=== PATIENT | female | born 1945 | race Caucasian/White ===

== ENCOUNTER 2018-06-23 13:35 | Emergency (ER) | payer BC ==
[~2018-06-23] VITALS: Ht 162.6 cm; Wt 75.7 kg
[~2018-06-23 13:35] MED LIST: LIPITOR10 MG PO
[2018-06-23 13:39] VITALS: BP 124/72; Ht 162.6 cm; Wt 75.7 kg
== END 2018-06-23 14:54 | disposition home or self-care (01) ==
LOC: ED 13:35
DX: M25.511 Pain in right shoulder (principal); E78.00 Pure hypercholesterolemia, unspecified; K21.9 Gastro-esophageal reflux disease without esophagitis; F41.9 Anxiety disorder, unspecified
CPT/HCPCS: J1885

== ENCOUNTER 2018-07-04 13:27 | Emergency (ER) | payer BC ==
[~2018-07-04] VITALS: Ht 162.6 cm; Wt 75.7 kg
[2018-07-04 13:37] VITALS: BP 149/75; Ht 162.6 cm; Wt 75.7 kg
== END 2018-07-04 14:34 | disposition home or self-care (01) ==
LOC: ED 13:27
DX: J40 Bronchitis, not specified as acute or chronic (principal); E78.00 Pure hypercholesterolemia, unspecified; K21.9 Gastro-esophageal reflux disease without esophagitis; F41.9 Anxiety disorder, unspecified

== ENCOUNTER 2018-12-15 16:07 | Emergency (ER) | payer BC ==
[~2018-12-15] VITALS: Ht 162.6 cm; Wt 79.4 kg
[2018-12-15 16:11] VITALS: Ht 162.6 cm; Wt 79.4 kg
[2018-12-15 17:58] VITALS: BP 138/88
== END 2018-12-15 17:58 | disposition home or self-care (01) ==
LOC: ED 16:07
DX: R07.89 Other chest pain (principal); F41.9 Anxiety disorder, unspecified; E78.00 Pure hypercholesterolemia, unspecified; K21.9 Gastro-esophageal reflux disease without esophagitis

== ENCOUNTER 2019-02-20 09:04 | Emergency (ER) | payer BC ==
[~2019-02-20] VITALS: Ht 162.6 cm; Wt 77.6 kg
[2019-02-20 09:23] VITALS: Ht 162.6 cm; Wt 77.6 kg
[2019-02-20 09:55] VITALS: BP 140/78
== END 2019-02-20 09:55 | disposition home or self-care (01) ==
LOC: ED 09:04
DX: J02.9 Acute pharyngitis, unspecified (principal); E78.00 Pure hypercholesterolemia, unspecified; K21.9 Gastro-esophageal reflux disease without esophagitis; F41.9 Anxiety disorder, unspecified

== ENCOUNTER 2019-05-27 07:40 | Emergency (ER) | payer BC ==
[~2019-05-27] VITALS: Ht 162.6 cm; Wt 77.6 kg
[2019-05-27 07:49] VITALS: BP 137/63; Ht 162.6 cm; Wt 77.6 kg
== END 2019-05-27 08:27 | disposition home or self-care (01) ==
LOC: ED 07:40
DX: N39.0 Urinary tract infection, site not specified (principal); E78.00 Pure hypercholesterolemia, unspecified; K21.9 Gastro-esophageal reflux disease without esophagitis